=== PATIENT | male | born 1950 | race Caucasian/White ===

== ENCOUNTER 2021-02-16 07:49 | Day surgery (SDC) | payer MEDICARE ==
[2021-02-15 13:53] VITALS: BMI 26.5
[2021-02-16] MEDS ORDERED: Sodium Bicarbonate 2.5 MEQ/5 ML VIAL ONE (08:45)
[2021-02-16] MEDS ORDERED: Lidocaine 1% PF 5 ML VIAL ONE (08:46)
[2021-02-16 10:24] LABS: RBC Count-Automated (BF) 10 /cu.mm; WBC/Nucleated-Auto (BF) 245 uL
[2021-02-16 10:29] LABS: Albumin Less than 1.0 g/dL (3.4-4.8); Protein, Total 1.5 g/dL (5.8-8.1)
[2021-02-16 10:55] LABS: BF Color Yellow; Body Fluid Source Ascites Body Fluid; Clarity Hazy (Clear); Tube # EDTA
[2021-02-16 11:42] VITALS: BP 127/57
[2021-02-16 11:51] LABS: BF Segmented Neutrophils 8 %; Cell Count Non Hematic 56 %; Lymphocytes 36 %
== END 2021-02-16 09:40 | disposition home or self-care (01) ==
LOC: ULT 07:49
PROVIDERS: ATTEND Internal Medicine Gastroenterology
PROC: 0W9G3ZX Drainage of Peritoneal Cavity, Percutaneous Approach, Diagnostic (ICD-10-PCS; principal; 2021-02-16)
DX: K70.31 Alcoholic cirrhosis of liver with ascites (principal); I85.10 Secondary esophageal varices without bleeding; K42.9 Umbilical hernia without obstruction or gangrene; K40.90 Unilateral inguinal hernia, without obstruction or gangrene, not specified as recurrent; R16.1 Splenomegaly, not elsewhere classified; K80.20 Calculus of gallbladder without cholecystitis without obstruction; I10 Essential (primary) hypertension; Z23 Encounter for immunization; Z87.891 Personal history of nicotine dependence; Z79.02 Long term (current) use of antithrombotics/antiplatelets; Z79.4 Long term (current) use of insulin; Z79.899 Other long term (current) drug therapy; Z95.1 Presence of aortocoronary bypass graft
CPT/HCPCS: 49083; 82040; 84155; 87070; 87205; 89051; 90732; 93975; G0009; 85060; 90471

== ENCOUNTER 2021-05-25 08:54 | Day surgery (SDC) | payer MEDICARE ==
[2021-05-24 12:48] VITALS: BMI 25.0
[2021-05-25 09:34] LABS: INR-International Normal Ratio 1.2; Prothrombin Time 14.9 sec (12.0-14.7)
[2021-05-25 09:35] LABS: PTT 35.4 sec (22.9-36.1)
[2021-05-25] MEDS ORDERED: Lidocaine 1% PF 5 ML VIAL ONE (10:03)
[2021-05-25] MEDS ORDERED: Sodium Bicarbonate 2.5 MEQ/5 ML VIAL ONE (10:03)
[2021-05-25 12:01] VITALS: TEMP 97.9
[2021-05-25 12:06] VITALS: BP 129/54
[2021-05-25 14:38] LABS: RBC Count-Automated (BF) 109 /cu.mm; WBC/Nucleated-Auto (BF) 301 /cu.mm
[2021-05-25 17:15] LABS: Body Fluid Source Ascites Body Fluid; Tube # EDTA
[2021-05-25 17:16] LABS: BF Color Yellow
[2021-05-25 17:17] LABS: Clarity Hazy (Clear)
[2021-05-25 17:19] LABS: BF Segmented Neutrophils 26 %; Cell Count Non Hematic 41 %; Lymphocytes 33 %
== END 2021-05-25 10:51 | disposition home or self-care (01) ==
LOC: ULT 08:54
PROVIDERS: ATTEND Internal Medicine Gastroenterology
PROC: 0W9G3ZX Drainage of Peritoneal Cavity, Percutaneous Approach, Diagnostic (ICD-10-PCS; principal; 2021-05-25)
DX: K70.31 Alcoholic cirrhosis of liver with ascites (principal); I85.10 Secondary esophageal varices without bleeding; K72.90 Hepatic failure, unspecified without coma; K42.9 Umbilical hernia without obstruction or gangrene; K40.90 Unilateral inguinal hernia, without obstruction or gangrene, not specified as recurrent; I10 Essential (primary) hypertension; Z87.891 Personal history of nicotine dependence; Z79.02 Long term (current) use of antithrombotics/antiplatelets; Z79.4 Long term (current) use of insulin; Z79.899 Other long term (current) drug therapy; Z91.048 Other nonmedicinal substance allergy status; Z95.1 Presence of aortocoronary bypass graft
CPT/HCPCS: 36415; 49083; 85060; 85610; 85730; 87070; 87205; 89051

== ENCOUNTER 2021-06-29 13:22 | Outpatient (CLI) | payer MEDICARE ==
[2021-06-30 01:35] LABS: SARS-CoV-2 PCR by NAA Not Detected (NotDetected)
== END 2021-06-29 13:23 | disposition home or self-care (01) ==
LOC: LABBT 13:22
PROVIDERS: ATTEND Internal Medicine Gastroenterology
DX: Z01.812 Encounter for preprocedural laboratory examination (principal); R18.8 Other ascites; K74.60 Unspecified cirrhosis of liver; K40.90 Unilateral inguinal hernia, without obstruction or gangrene, not specified as recurrent; K72.90 Hepatic failure, unspecified without coma; K42.9 Umbilical hernia without obstruction or gangrene; I85.00 Esophageal varices without bleeding; Z20.822 Contact with and (suspected) exposure to COVID-19
CPT/HCPCS: U0003; U0005

== ENCOUNTER 2021-07-04 06:02 | Day surgery (SDC) | payer MEDICARE ==
[2021-06-28 16:08] VITALS: BMI 27.2
[2021-07-04] MEDS ORDERED: ePHEDrine 50 MG/ML VIAL ONE (09:19)
[2021-07-04] MEDS ORDERED: Phenylephrine 10 MG/ML VIAL ONE (09:19)
[2021-07-04] MEDS ORDERED: Lidocaine 1% PF 5 ML VIAL ONE (09:19)
[2021-07-04] MEDS ORDERED: PROPOFOL 200 MG/20 ML VIAL ONE (09:20)
== END 2021-07-04 11:15 | disposition home or self-care (01) ==
LOC: SDC 06:02
PROVIDERS: ATTEND Internal Medicine Gastroenterology
PROC: 06L38CZ Occlusion of Esophageal Vein with Extraluminal Device, Via Natural or Artificial Opening Endoscopic (ICD-10-PCS; principal; 2021-07-04)
PROC: 0DJD8ZZ Inspection of Lower Intestinal Tract, Via Natural or Artificial Opening Endoscopic (ICD-10-PCS; 2021-07-04)
DX: Z12.11 Encounter for screening for malignant neoplasm of colon (principal); K74.60 Unspecified cirrhosis of liver; K76.6 Portal hypertension; K31.89 Other diseases of stomach and duodenum; I85.10 Secondary esophageal varices without bleeding; K64.2 Third degree hemorrhoids; K55.20 Angiodysplasia of colon without hemorrhage; I10 Essential (primary) hypertension; Z79.02 Long term (current) use of antithrombotics/antiplatelets; Z79.4 Long term (current) use of insulin; Z79.899 Other long term (current) drug therapy; Z91.048 Other nonmedicinal substance allergy status; Z95.1 Presence of aortocoronary bypass graft
CPT/HCPCS: 43244; 82962; G0121; 36416; J2370; J2704; J3490

== ENCOUNTER 2021-10-12 09:35 | Day surgery (SDC) | payer MEDICARE, OTHER ==
[2021-10-11 11:59] VITALS: BMI 22.9
[2021-10-12] MEDS ORDERED: Fentanyl 100 MCG/2 ML VIAL ONE (10:50)
[2021-10-12] MEDS ORDERED: Midazolam HCl 2 mg/2 ml Vial ONE (10:50)
[2021-10-12] MEDS ORDERED: Albumin 25% 200 ML ONE (12:01)
[2021-10-12 12:08] VITALS: BP 117/70; TEMP 94.4
== END 2021-10-12 13:15 | disposition home or self-care (01) ==
LOC: SPEC 09:35
PROVIDERS: ATTEND Physician Assistant Medical
PROC: 0W9G30Z Drainage of Peritoneal Cavity with Drainage Device, Percutaneous Approach (ICD-10-PCS; principal; 2021-10-12)
DX: K74.60 Unspecified cirrhosis of liver (principal); R18.8 Other ascites; I10 Essential (primary) hypertension; E78.5 Hyperlipidemia, unspecified; F10.11 Alcohol abuse, in remission; K21.9 Gastro-esophageal reflux disease without esophagitis; Z51.5 Encounter for palliative care; Z95.1 Presence of aortocoronary bypass graft; Z91.048 Other nonmedicinal substance allergy status
CPT/HCPCS: 49406; 75989; P9047; J2250; J3010